=== PATIENT | female | born 1950 | race Caucasian/White ===

== ENCOUNTER 2017-06-24 03:38 | Outpatient (CLI) | payer SELFPAY ==
[~2017-06-24 03:38] MED LIST: FLUO20CA39 PO
[2017-06-24 11:32] LABS: HEMOGLOBIN A1C 5.3 % (4.5-6.2)
[2017-06-24 11:48] LABS: CHOL/HDL RATIO 3.13 (0.00-4.99)
== END 2017-06-24 23:59 | disposition home or self-care (01) ==
LOC: HW HEART 03:38
DX: Z00.00 Encounter for general adult medical examination without abnormal findings (principal)
CPT/HCPCS: 36415

== ENCOUNTER 2018-01-03 10:31 | Inpatient (IN) | payer MEDICARE, OTHER ==
[2017-12-31 11:38] LABS: CLARITY,URINE CLEAR (Clear); COLOR,URINE YELLOW (Yellow); GLUCOSE, URINE NEGATIVE (Neg); KETONES,URINE NEGATIVE (Neg); LEUKOCYTE ESTERASE ,URINE SMALL (Neg); NITRITES, URINE NEGATIVE (Neg); OCCULT BLOOD,URINE TRACE-LYSED (Neg); PH,URINE 6.5 (4.8-8.0); PROTEIN,URINE NEGATIVE (Neg); UA COLLECTION TYPE CLN CATCH MIDSTREAM; UROBILINOGEN,URINE 0.2 E.U/dL (0.2-1.0)
[2017-12-31 11:42] LABS: BASOPHILS % (AUTO) 0.5 % (0-1); EOSINOPHILS # (AUTO) 0.1 X10'3 (0-0.9); EOSINOPHILS % (AUTO) 2.2 % (0-6); LYMPHOCYTES % (AUTO) 36.8 % (21-51); MEAN CORPUSCULAR HEMOGLOBIN 31.9 PG (27.0-31.0); MEAN CORPUSCULAR HGB CONC 34.4 % (33.0-36.5); MEAN CORPUSCULAR VOLUME 92.6 FL (78-98); MEAN PLATELET VOLUME 7.4 FL (7.4-10.4); MONOCYTES # (AUTO) 0.4 X10'3 (0-0.9); MONOCYTES % (AUTO) 6.5 % (2-12); PRE OP HEMATOCRIT 41.1 % (35.0-45.0); PRE OP HEMOGLOBIN 14.2 g/dL (12.0-16.0); PRE OP PLATELET COUNT 269 X10'3 (140-440); PRE OP PROTIME 10.4 SECONDS (9.0-12.0); RED BLOOD COUNT 4.44 X10'6 (4.20-5.60); RED CELL DISTRIBUTION WIDTH 12.2 % (11.5-14.5)
[2017-12-31 11:45] LABS: BACTERIA,URINE 1+ /HPF (Neg); MUCUS STRANDS NONE SEEN /LPF (Neg); RBC,URINE 0-2 /HPF (0-2); SQUAMOUS EPITHELIAL CELL,UR FEW /LPF (FEW); WBC,URINE 0-4 /HPF (0-4)
[2017-12-31 11:46] LABS: ALBUMIN 3.4 G/DL (3.4-5.0); ALBUMIN/GLOBULIN RATIO 0.9 (1.1-1.5); ALKALINE PHOSPHATASE 101 IU/L (46-116); BLOOD UREA NITROGEN 14 MG/DL (7-18); CALCIUM 8.6 MG/DL (8.5-10.1); CHLORIDE 106 MMOL/L (99-107); CREATININE 0.61 MG/DL (0.40-0.90); PRE OP ALT 20 U/L (30-65); PRE OP ANION GAP 8 (8-16); PRE OP AST 14 U/L (10-37); PRE OP BILIRUB, TOTAL 0.4 MG/DL (0.0-1.0); PRE OP GLUCOSE 106 MG/DL (70-104); PRE OP POTASSIUM 3.8 MMOL/L (3.4-5.1); PRE OP SODIUM 143 MMOL/L (135-145); TOTAL CARBON DIOXIDE 28.9 MMOL/L (24-32); eGFR > 90 ML/MIN
[2018-01-03] VITALS (15 sets, daily range): BP systolic 107–136; BP diastolic 58–79
[~2018-01-03] VITALS: Ht 160 cm; Wt 69.4 kg
[~2018-01-03 10:31] MED LIST changes: -FLUO20CA39 PO; +MESSAGE TO NURSING PO ONE; +SCOP1PAT16 TD; +TRAM50TA2 PO; +acetaminophen 325mg tablet PO ONE; +celeCOXIB 100mg capsule PO ONE; +famotidine 20mg tablet PO ONE; +gabapentin 300mg capsule PO ONE; +oxyCODONE SR 10mg (sust. release) tab PO ONE; +ringers solution, lacted 1,000 ML IV SCH; +scopolamine 1.5mg patch.TD72 TD ONE; +tranexamic acid inj. 1,500 MG in normal saline 100ml IV soln 85 ML IV ONE
[2018-01-03] MEDS ORDERED: cefazolin/dext.iso 2gm/100 ML IV ONE (13:40)
[2018-01-03] MEDS ORDERED: bacitracin inj 150,000 UNIT in sodium chloride irrig. sol 3,000 ML IR ONE (16:00)
[2018-01-03] MEDS ORDERED: ROPIVAcaine 0.5% (5mg/ml) 30ml vial ONE ×2 (16:31→18:32)
[2018-01-03] MEDS ORDERED: tetracaine 1% (10mg/ml) pres. free inj. ONE (16:42)
[2018-01-03] MEDS ORDERED: MIDAZolam 1mg/ml 10ml vial ONE (16:44)
[2018-01-03] MEDS ORDERED: fentaNYL/PF 50MCG/1 ML 2ML syringe ONE (16:47)
[2018-01-03] MEDS ORDERED: propofol inj 20 ML IV ONE ×2 (18:31)
[2018-01-03] MEDS ORDERED: ondansetron/PF 4mg/2ml inj IV PRN (19:20)
[2018-01-03] MEDS ORDERED: acetaminophen 325mg tablet PO PRN (19:20)
[2018-01-03] MEDS ORDERED: diphenhydrAMINE 25mg capsule PO PRN ×2 (19:20)
[2018-01-03] MEDS ORDERED: bisacodyl 10mg suppository rectal RC PRN (19:20)
[2018-01-03] MEDS ORDERED: oxyCODONE/APAP 5-325mg tablet PO PRN (19:20)
[2018-01-03] MEDS ORDERED: HYDROmorphone 1 mg/ml syringe IV PRN (19:20)
[2018-01-03] MEDS ORDERED: magnesium hydroxide 30ml (MOM) UD suspension PO PRN (19:20)
[2018-01-03] MEDS: ascorbic acid 500mg tablet PO SCH (21:59)
[2018-01-03] MEDS: gabapentin 300mg capsule PO SCH (21:59)
[2018-01-03] MEDS: sennosides 8.6mg tablet PO SCH (21:59)
[2018-01-03] MEDS: potassium cl 20mEq in 1/2 NS 1,000 ML IV SCH (21:59)
[2018-01-03] MEDS: ceFAZolin 1GM/D5W- ADD-VANTAGE 50 ML IV SCH (23:59)
[2018-01-04] VITALS (7 sets, daily range): BP systolic 122–150; BP diastolic 53–75
[2018-01-04] MEDS: potassium cl 20mEq in 1/2 NS 1,000 ML IV SCH ×3 (05:13→21:21)
[2018-01-04] MEDS: oxyCODONE/APAP 5-325mg tablet PO PRN ×3 (05:15→13:59)
[2018-01-04 05:59] LABS: BASOPHILS % (AUTO) 0.1 % (0-1); EOSINOPHILS % (AUTO) 0 % (0-6); HEMATOCRIT 41.3 % (35.0-45.0); HEMOGLOBIN 14.2 g/dl (12.0-16.0); LYMPHOCYTES # (AUTO) 0.8 X10'3 (1.1-4.8); LYMPHOCYTES % (AUTO) 9.6 % (21-51); MEAN CORPUSCULAR HEMOGLOBIN 32.2 PG (27.0-31.0); MEAN CORPUSCULAR HGB CONC 34.3 % (33.0-36.5); MEAN CORPUSCULAR VOLUME 93.8 FL (78-98); MEAN PLATELET VOLUME 7.9 FL (7.4-10.4); MONOCYTES # (AUTO) 0.2 X10'3 (0-0.9); NEUTROPHILS % (AUTO) 88.3 % (42-75); PLATELET COUNT 251 X10'3 (140-440); RED BLOOD COUNT 4.41 X10'6 (4.20-5.60); RED CELL DISTRIBUTION WIDTH 11.8 % (11.5-14.5)
[2018-01-04 06:06] LABS: INR 1.4 INR; PROTHROMBIN TIME 14.3 SECONDS (9.0-12.0)
[2018-01-04 06:16] LABS: ANION GAP 9 (8-16); CHLORIDE 108 MMOL/L (99-107); POTASSIUM 4.4 MMOL/L (3.5-5.1); SODIUM 143 MMOL/L (135-145); TOTAL CARBON DIOXIDE 26.1 MMOL/L (24-32)
[2018-01-04] MEDS: ceFAZolin 1GM/D5W- ADD-VANTAGE 50 ML IV SCH (08:01)
[2018-01-04] MEDS: gabapentin 300mg capsule PO SCH ×3 (08:11→19:48)
[2018-01-04] MEDS: multivitamins, therapeutics tablet PO SCH (08:12)
[2018-01-04] MEDS: ascorbic acid 500mg tablet PO SCH ×2 (08:12→19:49)
[2018-01-04] MEDS ORDERED: warfarin 10mg tablet PO ONE (10:00)
[2018-01-04] MEDS ORDERED: warfarin 5mg tablet PO ONE (10:00)
[2018-01-04] MEDS ORDERED: oxyCODONE/APAP 10/325mg tablet PO PRN (17:50)
[2018-01-04] MEDS: sennosides 8.6mg tablet PO SCH (19:48)
[2018-01-04] MEDS: celeCOXIB 100mg capsule PO SCH (19:49)
[2018-01-04] MEDS: oxyCODONE/APAP 10/325mg tablet PO PRN (19:49)
[2018-01-05 02:00] VITALS: BP 134/72
[2018-01-05] MEDS: potassium cl 20mEq in 1/2 NS 1,000 ML IV SCH (03:17)
[2018-01-05 05:00] VITALS: BP 134/97
[2018-01-05] MEDS: oxyCODONE/APAP 10/325mg tablet PO PRN ×4 (05:14→20:01)
[2018-01-05 06:00] LABS: BASOPHILS % (AUTO) 0.5 % (0-1); EOSINOPHILS # (AUTO) 0.1 X10'3 (0-0.9); EOSINOPHILS % (AUTO) 0.9 % (0-6); HEMATOCRIT 38.3 % (35.0-45.0); HEMOGLOBIN 13.3 g/dl (12.0-16.0); LYMPHOCYTES # (AUTO) 2.3 X10'3 (1.1-4.8); LYMPHOCYTES % (AUTO) 24.9 % (21-51); MEAN CORPUSCULAR HEMOGLOBIN 32.5 PG (27.0-31.0); MEAN CORPUSCULAR HGB CONC 34.8 % (33.0-36.5); MEAN CORPUSCULAR VOLUME 93.6 FL (78-98); MEAN PLATELET VOLUME 7.8 FL (7.4-10.4); MONOCYTES # (AUTO) 0.5 X10'3 (0-0.9); MONOCYTES % (AUTO) 5.7 % (2-12); NEUTROPHILS # (AUTO) 6.2 X10'3 (1.8-7.7); PLATELET COUNT 245 X10'3 (140-440); RED BLOOD COUNT 4.09 X10'6 (4.20-5.60); RED CELL DISTRIBUTION WIDTH 11.9 % (11.5-14.5); WHITE BLOOD COUNT 9.1 X10'3 (4.5-11.0)
[2018-01-05 06:12] LABS: PROTHROMBIN TIME 30.1 SECONDS (9.0-12.0)
[2018-01-05 06:46] VITALS: BP 153/78
[2018-01-05] MEDS: gabapentin 300mg capsule PO SCH ×3 (07:57→20:01)
[2018-01-05] MEDS: ascorbic acid 500mg tablet PO SCH ×2 (07:57→20:01)
[2018-01-05] MEDS: multivitamins, therapeutics tablet PO SCH (07:57)
[2018-01-05] MEDS: celeCOXIB 100mg capsule PO SCH ×2 (07:58→20:01)
[2018-01-05 10:00] VITALS: BP 162/79
[2018-01-05] MEDS ORDERED: metoclopramide 5 mg/ml inj IV PRN (10:30)
[2018-01-05 11:24] VITALS: BP 162/79
[2018-01-05 18:00] VITALS: BP 101/61
[2018-01-05] MEDS ORDERED: acetaminophen 325mg tablet PO PRN (19:20)
[2018-01-05] MEDS: sennosides 8.6mg tablet PO SCH (20:01)
[2018-01-06] MEDS: potassium cl 20mEq in 1/2 NS 1,000 ML IV SCH (00:45)
[2018-01-06] MEDS: oxyCODONE/APAP 10/325mg tablet PO PRN ×2 (05:15→09:52)
[2018-01-06 06:28] LABS: INR 1.6 INR; PROTHROMBIN TIME 16.6 SECONDS (9.0-12.0)
[2018-01-06 06:57] VITALS: BP 147/55
[2018-01-06 07:06] LABS: BASOPHILS % (AUTO) 0.3 % (0-1); EOSINOPHILS # (AUTO) 0.1 X10'3 (0-0.9); EOSINOPHILS % (AUTO) 1.5 % (0-6); HEMATOCRIT 39.6 % (35.0-45.0); HEMOGLOBIN 13.6 g/dl (12.0-16.0); LYMPHOCYTES # (AUTO) 1.2 X10'3 (1.1-4.8); LYMPHOCYTES % (AUTO) 13.1 % (21-51); MEAN CORPUSCULAR HGB CONC 34.4 % (33.0-36.5); MEAN CORPUSCULAR VOLUME 93.2 FL (78-98); MONOCYTES # (AUTO) 0.6 X10'3 (0-0.9); MONOCYTES % (AUTO) 6.3 % (2-12); NEUTROPHILS # (AUTO) 7.5 X10'3 (1.8-7.7); NEUTROPHILS % (AUTO) 78.8 % (42-75); PLATELET COUNT 282 X10'3 (140-440); RED BLOOD COUNT 4.25 X10'6 (4.20-5.60); WHITE BLOOD COUNT 9.4 X10'3 (4.5-11.0)
[2018-01-06] MEDS: ascorbic acid 500mg tablet PO SCH (07:27)
[2018-01-06] MEDS: multivitamins, therapeutics tablet PO SCH (07:27)
[2018-01-06] MEDS: celeCOXIB 100mg capsule PO SCH (07:27)
[2018-01-06] MEDS: gabapentin 300mg capsule PO SCH (07:27)
[2018-01-06] MEDS ORDERED: ASPI-1264 PO (08:37)
[2018-01-06] MEDS ORDERED: WALKERFR (08:38)
[2018-01-06 10:00] VITALS: BP 126/71
[2018-01-06] MEDS ORDERED: warfarin 2.5mg tablet PO ONE (10:00)
== END 2018-01-06 11:00 | disposition home health service (06) | DRG 470 ==
LOC: PAS IN 14:30 → EDSTATUS 17:15 → ORTHO 4S 20:15
PROVIDERS: ADMIT Specialist; ATTEND Specialist
PROC: 3E0T3BZ Introduction of Anesthetic Agent into Peripheral Nerves and Plexi, Percutaneous Approach (ICD-10-PCS; 2018-01-03)
PROC: 0SRC0J9 Replacement of Right Knee Joint with Synthetic Substitute, Cemented, Open Approach (ICD-10-PCS; principal; 2018-01-03 16:42)
DX: M17.11 Unilateral primary osteoarthritis, right knee (principal); Z96.652 Presence of left artificial knee joint; Z88.0 Allergy status to penicillin; Z79.899 Other long term (current) drug therapy; Z79.82 Long term (current) use of aspirin
CPT/HCPCS: 36415; 73560; 80051; 80053; 81001; 85025; 85610; 85730; 87070; 87088; 97110; 97116; 97161; 97530; A6449; A6455; A7000; C1713; C1758; C1776; J0690; J1170; J2250; J2405; J2704; J2765; J2795; J3010; J7030; J7120

== ENCOUNTER 2018-05-16 10:44 | Day surgery (SDC) | payer MEDICARE, OTHER ==
[2018-05-16] VITALS (10 sets, daily range): BP systolic 121–232; BP diastolic 76–86
[~2018-05-16] VITALS: Ht 160 cm; Wt 70.0 kg
[~2018-05-16 10:44] MED LIST changes: -MESSAGE TO NURSING PO ONE; +NO HOME MEDS; -SCOP1PAT16 TD; -TRAM50TA2 PO; -acetaminophen 325mg tablet PO ONE; +cefazolin/dext.iso 2gm/50ml 50 ML IV ONE; -gabapentin 300mg capsule PO ONE; +oxyCODONE IR 5mg (immed. release) tablet PO ONE; -oxyCODONE SR 10mg (sust. release) tab PO ONE; -scopolamine 1.5mg patch.TD72 TD ONE; -tranexamic acid inj. 1,500 MG in normal saline 100ml IV soln 85 ML IV ONE
[2018-05-16 11:52] LABS: BASOPHILS % (AUTO) 0.7 % (0-1); EOSINOPHILS # (AUTO) 0.1 X10'3 (0-0.9); EOSINOPHILS % (AUTO) 2.4 % (0-6); LYMPHOCYTES # (AUTO) 1.9 X10'3 (1.1-4.8); LYMPHOCYTES % (AUTO) 37.9 % (21-51); MEAN CORPUSCULAR HEMOGLOBIN 31.4 PG (27.0-31.0); MEAN CORPUSCULAR HGB CONC 33.7 g/dL (33.0-36.5); MEAN CORPUSCULAR VOLUME 93.1 FL (78-98); MEAN PLATELET VOLUME 7.7 FL (7.4-10.4); MONOCYTES # (AUTO) 0.3 X10'3 (0-0.9); MONOCYTES % (AUTO) 6.4 % (2-12); NEUTROPHILS # (AUTO) 2.8 X10'3 (1.8-7.7); NEUTROPHILS % (AUTO) 52.6 % (42-75); PRE OP HEMATOCRIT 41.5 % (35.0-45.0); PRE OP PLATELET COUNT 317 X10'3 (140-440); RED BLOOD COUNT 4.46 X10'6 (4.20-5.60); RED CELL DISTRIBUTION WIDTH 12.6 % (11.5-14.5)
[2018-05-16 11:55] LABS: ALBUMIN 3.7 G/DL (3.4-5.0); ALKALINE PHOSPHATASE 101 IU/L (46-116); BLOOD UREA NITROGEN 13 MG/DL (7-18); CALCIUM 8.5 MG/DL (8.5-10.1); CHLORIDE 106 MMOL/L (99-107); CREATININE 0.52 MG/DL (0.40-0.90); PRE OP ALT 19 U/L (30-65); PRE OP ANION GAP 9 (8-16); PRE OP AST 17 U/L (10-37); PRE OP BILIRUB, TOTAL 0.4 MG/DL (0.0-1.0); PRE OP GLUCOSE 98 MG/DL (70-104); PRE OP SODIUM 140 MMOL/L (135-145); TOTAL CARBON DIOXIDE 24.8 MMOL/L (24-32); TOTAL PROTEIN 7.3 G/DL (6.4-8.2); eGFR > 90 ML/MIN
[2018-05-16] MEDS ORDERED: fentaNYL/PF 50MCG/1 ML 2ML syringe ONE (12:59)
[2018-05-16] MEDS ORDERED: propofol inj 20 ML IV ONE (13:00)
[2018-05-16] MEDS ORDERED: midazolam 2 mg/2 ml injection ONE (13:00)
[2018-05-16] MEDS ORDERED: ROPIVAcaine 0.5% (5mg/ml) 30ml vial ONE (13:01)
[2018-05-16] MEDS ORDERED: sevoflurane 250ml liquid IH ONE (13:02)
--- NOTE | 2018-05-16 13:34 | NUR ---
Received from OR via , accompanied by Anesthesiologist FAY and report given by Anesthesiolgist. AWAKE IN NO RESP DISTRESS SKIN WARM AND DRY, HOB FOB ELEVATAED, ICE TO RT KNEE. NO CO PAIN.
[2018-05-16] MEDS ORDERED: ringers solution, lacted 1,000 ML IV SCH (14:02)
[2018-05-16] MEDS ORDERED: meperidine/PF 25mg/ml syringe ONE (14:03)
[2018-05-16] MEDS ORDERED: oxyCODONE IR 5mg (immed. release) tablet PO ONE (14:05)
[2018-05-16] MEDS ORDERED: meperidine/PF 25mg/ml syringe IV PRN ×3 (14:05)
[2018-05-16] MEDS ORDERED: ondansetron/PF 4mg/2ml inj IV PRN (14:05)
[2018-05-16] MEDS ORDERED: proCHLORperazine 10 MG/2 ml inj IV PRN (14:05)
[2018-05-16] MEDS ORDERED: morphine 4 MG/ML inj SYRINge IV PRN ×2 (14:05)
--- NOTE | 2018-05-16 14:54 | NUR ---
AWAKE VS WNL, WINSOME, RLE HAS STRENGTH, PT WILL KEEP ELEVATED WITH ICE. DISCH INSTR GIVEN TO PT AND UNDERSTOOD, S.O. TOOK PAIN MED SCRIPT TO MELISSA, TOLERATED LIQUIDS. HOME WITH SO.
== END 2018-05-16 14:54 | disposition home or self-care (01) ==
LOC: PAS 10:44
PROVIDERS: ATTEND Specialist
DX: M24.661 Ankylosis, right knee (principal); Z88.0 Allergy status to penicillin; Z96.653 Presence of artificial knee joint, bilateral; Z72.89 Other problems related to lifestyle
CPT/HCPCS: 27570; 36415; 80053; 82948; 85025; J0690; J2175; J2250; J2704; J3010; J2795; J7120